=== PATIENT | female | born 1955 | race Caucasian/White ===

== ENCOUNTER 2018-09-19 12:33 | Emergency (ER) | payer SELFPAY ==
[2018-09-19 13:42] LABS: Absolute Lymphocytes (CBC) 1.8 K/uL (0.7-4.9); Absolute Monocytes 0.7 K/uL (0.1-1.3); Absolute Neutrophil 4.6 K/uL (1.8-8.0); Basophils % 0.9 % (0-1.3); Eosinophils % 0.4 % (0-4.4); Hematocrit 15.8 % (36.0-45.0); MPV 8.6 fL (7.6-11.3); Monocytes % 10.1 % (3.3-12.3); RBC Red Blood Cell Count 2.19 M/uL (3.86-4.86)
[2018-09-19 14:27] LABS: Albumin 3.6 g/dL (3.4-5.0); Bilirubin Direct 0.1 mg/dL (0-0.2); Bilirubin Total 0.4 mg/dL (0.2-1.0); Ferritin 1.6 ng/mL (8-388); Folic Acid, (Folate) 16.5 ng/mL (3.1-17.5); Potassium 3.4 mmol/L (3.5-5.1); Protein, Total 7.3 g/dL (6.4-8.2)
--- NOTE | 2018-09-19 14:45 | EKG ---
Test Date: 2018-09-19 Test Time: 13:13:14 Clerk: JAGDISH MEASUREMENT RESULTS: Intervals: Rate: 69 [place]: 150 QRSD: 84 QT: 378 QTc: 405 [place]: P: 35 [place]: 150 QRS: 15 T: 26 INTERPRETIVE STATEMENTS: Normal sinus rhythm Normal ECG Compared to ECG 05/17/2007 05:51:30 Sinus bradycardia no longer present Electronically Signed On 09-19-18 14:44:11 OBSTETRICS NURSE PRACTITIONER by Josue Sampson
--- NOTE | 2018-09-19 14:52 | ER ---
Nurse's Notes [facility] Name: Daxa Perea Age: 63 yrs Sex: Female : 1955 Arrival Date: 09/19/2018 Time: 12:36 Bed 6 Private MD: Jose F Yoder Diagnosis: Iron deficiency anemia Presentation: 09/19 12:55 Presenting complaint: Patient states: Had blood work done and Dr's office called and ph told her to come to ED for Hgb 5.6, pt reports recent GI illness w/ N/V/D x approx 1 week, denies bloody stool or emesis, reports dizziness, fatigue, SOB. Transition of care: patient was not received from another setting of care. Onset of symptoms was September 19, 2018. Risk Assessment: Do you want to hurt yourself or someone else? Patient reports no desire to harm self or others. Initial Sepsis Screen: Does the patient meet any 2 criteria? No. Patient's initial sepsis screen is negative. Does the patient have a suspected source of infection? No. Patient's initial sepsis screen is negative. Care prior to arrival: None. 12:55 Method Of Arrival: Ambulatory ph 12:55 Acuity: STEPHEN 3 ph Historical: - Allergies: 12:57 No Known Allergies; ph - Home Meds: 13:05 metoprolol succinate 25 mg oral Tb24 1 tab once daily [Active]; sv losartan-hydrochlorothiazide 50-12.5 mg oral tab 1 tab once daily [Active]; omeprazole 40 mg Oral cpDR 1 cap once daily [Active]; citalopram 20 mg tab 1 tab once daily [Active]; isosorbide mononitrate 30 mg Oral Tb24 1 tab once daily [Active]; atorvastatin 40 mg oral tab 1 tab once daily [Active]; clopidogrel 75 mg oral tab 1 tab once daily [Active]; bupropion HCl 150 mg Oral TbER 1 tab once daily [Active]; aspirin 81 mg Oral TbEC 1 tab once daily [Active]; Hemocyte-Plus 106 mg iron- 1 mg oral cap 1 cap once daily [Active]; Centrum Silver oral oral daily [Active]; - PMHx: 12:57 Hypertension; ph - Immunization history:: Adult Immunizations unknown. - Social history:: Smoking status: Patient/guardian denies using tobacco, Patient uses alcohol, on a daily basis. " 1 glass of wine". - Ebola Screening: : No symptoms or risks identified at this time. - Family history:: not pertinent. - Hospitalizations: : No recent hospitalization is reported. Screenin:20 Abuse screen: Denies threats or abuse. Denies injuries from another. Nutritional sv screening: No deficits noted. Tuberculosis screening: No symptoms or risk factors identified. 13:34 Fall Risk None identified. sv Assessment: 13:20 General: Appears in no apparent distress. comfortable, well groomed, well developed, sv Behavior is calm, cooperative, appropriate for age. Pain: Denies pain. Neuro: Level of Consciousness is awake, alert, obeys commands, Oriented to person, place, time, situation, Moves all extremities. Full function Gait is steady, Speech is normal, Reports weakness. Respiratory: Reports shortness of breath on exertion Airway is patent Respiratory effort is even, unlabored, Respiratory pattern is regular, symmetrical. GI: Reports diarrhea, nausea, vomiting. Derm: Skin is pale. 14:15 Reassessment: Patient appears in no apparent distress at this time. No changes from sv previously documented assessment. Patient and/or family updated on plan of care and expected duration. Pain level reassessed. Patient is alert, oriented x 3, equal unlabored respirations, skin warm/dry/pink. 15:07 Reassessment: Patient appears in no apparent distress at this time. No changes from sv previously documented assessment. Patient and/or family updated on plan of care and expected duration. Pain level reassessed. Patient is alert, oriented x 3, equal unlabored respirations, skin warm/dry/pink. Vital Signs: 12:57 BP 120 / 71; Pulse 75; Resp 18; Temp 97.8; Pulse Ox 100% on R/A; Weight 72.57 kg; ph Height 5 ft. 3 in. (160.02 cm); 13:45 BP 107 / 63; Pulse 85; Resp 18; Pulse Ox 99% ; sv 14:34 BP 105 / 58; Pulse 71; Resp 18; Pulse Ox 100% ; sv 12:57 Body Mass Index 28.34 (72.57 kg, 160.02 cm) ph ED Course: 12:36 Patient arrived in ED. rg4 12:36 Jose F Yoder MD is Private Physician. rg4 12:48 Adarsh Goodwin MD is Attending Physician. rn 12:57 Triage completed. ph 12:58 Arm band placed on Patient placed in an exam room, on a stretcher. ph 13:06 Marychuy Dos Santos, RN is Primary Nurse. sv 13:20 Patient has correct armband on for positive identification. Placed in gown. Bed in low sv position. Call light in reach. Door closed. Head of bed elevated. 13:25 Initial lab(s) drawn, by me, sent to lab. T\\T\\S collected, blood band applied to patient. sv Inserted saline lock: 20 gauge in right Blood collected. Flushed right forearm with 5 ml normal saline. 13:38 Awaiting lab results. sv 14:51 Jose F Yoder MD is Referral Physician. rn 15:07 No provider procedures requiring assistance completed. IV discontinued, intact, sv bleeding controlled, No redness/swelling at site. Pressure dressing applied. Administered Medications: No medications were administered Point of Care Testing: Guaiac: 14:15 Stool Guaiac: Negative; Stool Hemoccult Control: Pass; sv 14:36 Stool Guaiac: Negative; Stool Hemoccult Control: Pass; rn 14:[address] Goodwin Outcome: 15:07 AMA AMA form signed sv 15:07 Condition: stable 15:07 Instructed on follow up and referral plans. Demonstrated understanding of follow-up care. 15:09 Patient left the ED. sv Signatures: Marychuy Dos Santos, RN Adarsh Ferguson MD MD rn Hall, Patricia, RN RN ph Garcia, Rubi rg4
--- NOTE | 2018-09-19 14:52 | EDPHYS ---
Physician Documentation [facility] Name: Daxa Perea Age: 63 yrs Sex: Female : 1955 Arrival Date: 09/19/2018 Time: 12:36 Bed 6 Private MD: Jose F Yoder ED Physician Adarsh Goodwin HPI: 09/19 13:23 This 63 yrs old Female presents to ER via Ambulatory with complaints of rn Abnormal Lab Results. 13:23 Reports had outpt bloodwork and sent here for low hemoglobin, denies rn fever/vomiting/vomiting blood/blood in stool. Reports had recent "intestinal bug", denies abd pain. Reports feeling generalized weakness and fatigue for weeks now. No previous need for blood transfusion.. Onset: The symptoms/episode began/occurred at an unknown time. Severity of symptoms: At their worst the symptoms were moderate in the emergency department the symptoms are unchanged. The patient has not experienced similar symptoms in the past. The patient has been recently seen by a physician:. Historical: - Allergies: 12:57 No Known Allergies; ph - Home Meds: 13:05 metoprolol succinate 25 mg oral Tb24 1 tab once daily [Active]; sv losartan-hydrochlorothiazide 50-12.5 mg oral tab 1 tab once daily [Active]; omeprazole 40 mg Oral cpDR 1 cap once daily [Active]; citalopram 20 mg tab 1 tab once daily [Active]; isosorbide mononitrate 30 mg Oral Tb24 1 tab once daily [Active]; atorvastatin 40 mg oral tab 1 tab once daily [Active]; clopidogrel 75 mg oral tab 1 tab once daily [Active]; bupropion HCl 150 mg Oral TbER 1 tab once daily [Active]; aspirin 81 mg Oral TbEC 1 tab once daily [Active]; Hemocyte-Plus 106 mg iron- 1 mg oral cap 1 cap once daily [Active]; Centrum Silver oral oral daily [Active]; - PMHx: 12:57 Hypertension; ph - Immunization history:: Adult Immunizations unknown. - Social history:: Smoking status: Patient/guardian denies using tobacco, Patient uses alcohol, on a daily basis. " 1 glass of wine". - Ebola Screening: : No symptoms or risks identified at this time. - Family history:: not pertinent. - Hospitalizations: : No recent hospitalization is reported. ROS: 13:23 Constitutional: Negative for fever, chills, and weight loss, Eyes: Negative for injury, rn pain, redness, and discharge, Cardiovascular: Negative for chest pain, palpitations, and edema, Respiratory: Negative for shortness of breath, cough, wheezing, and pleuritic chest pain, Abdomen/GI: Negative for abdominal pain, nausea, vomiting, diarrhea, and constipation, MS/Extremity: Negative for injury and deformity, Skin: Negative for injury, rash, and discoloration, Neuro: Negative for headache, numbness, tingling, and seizure. Exam: 13:23 Constitutional: This is a well developed, well nourished patient who is awake, alert, rn and in no acute distress. Head/Face: Normocephalic, atraumatic. Eyes: Pale conjunctivae ENT: MMM Abdomen/GI: soft, non-tender Skin: Warm, dry MS/ Extremity: Pulses equal, no cyanosis. Neurovascular intact. Full, normal range of motion. Equal circumference. Neuro: Awake and alert, GCS 15, oriented to person, place, time, and situation. Cranial nerves II-XII grossly intact. Motor strength 5/5 in all extremities. Sensory grossly intact. Vital Signs: 12:57 BP 120 / 71; Pulse 75; Resp 18; Temp 97.8; Pulse Ox 100% on R/A; Weight 72.57 kg; ph Height 5 ft. 3 in. (160.02 cm); 13:45 BP 107 / 63; Pulse 85; Resp 18; Pulse Ox 99% ; sv 14:34 BP 105 / 58; Pulse 71; Resp 18; Pulse Ox 100% ; sv 12:57 Body Mass Index 28.34 (72.57 kg, 160.02 cm) ph MDM: 12:48 Patient medically screened. rn 14:44 Differential Diagnosis anemia, iron deficiency anemia. Data reviewed: vital signs, rn nurses notes, lab test result(s), EKG, and as a result, I will admit patient. Counseling: I had a detailed discussion with the patient and/or guardian regarding: the historical points, exam findings, and any diagnostic results supporting the discharge/admit diagnosis, lab results, radiology results, the need for further work-up and treatment in the hospital. Refusal of service: The patient/guardian displays adequate decision making capability and despite a detailed discussion of alternatives, benefits, risks, and consequences refuses: Admission to the hospital for further work-up and treatment. ED course: Pt with anemia, negative hemoccult, appears iron deficiency with low iron, low transferrin, low saturation. Recommended admission for iron deficiency and further w/u given father had evgeny, patient states just finished paying off 4 year bill for her heart attack and an admission would put her back a lot again and can't handle that. Risks understood. This has likely been ongoing for months or longer, states has chronic anemia but has never gotten this bad. Plans to make outpt appt with Dr. Yoder and hematology for further w/u and take iron supplements until then. Return precautions given and understood. . 09/19 12:59 Order name: TRANSFERRIN SAT/IRON BINDING; Complete Time: 14:36 rn 09/19 12:59 Order name: Folic Acid,Serum (folate); Complete Time: 14:36 rn 09/19 12:59 Order name: Ferritin; Complete Time: 14:36 rn 09/19 12:59 Order name: B12; Complete Time: 14:36 rn 09/19 12:59 Order name: Retic Count; Complete Time: 14:17 rn 09/19 12:59 Order name: Type And Screen rn 09/19 12:59 Order name: CBC with Diff; Complete Time: 14:17 rn 09/19 12:59 Order name: Basic Metabolic Panel; Complete Time: 14:36 rn 09/19 12:59 Order name: LFT's; Complete Time: 14:36 rn 09/19 12:59 Order name: Lipase; Complete Time: 14:36 rn 09/19 14:47 Order name: Occult Blood--Ancillary EDCA 09/19 12:59 Order name: EKG; Complete Time: 12:59 rn 09/19 12:59 Order name: EKG - Nurse/Tech; Complete Time: 13:34 rn Administered Medications: No medications were administered Point of Care Testing: Guaiac: 14:15 Stool Guaiac: Negative; Stool Hemoccult Control: Pass; mauro 14:36 Stool Guaiac: Negative; Stool Hemoccult Control: Pass; rn 14:[address] Christa wade Disposition: 09/19/18 14:52 Patient has left against medical advice. Impression: Iron deficiency anemia. - Patients states they are going to Home. - Condition is Stable. - Discharge Instructions: Iron Deficiency Anemia, Adult. - Prescriptions for Ferrous Sulfate 325 mg (65 mg Iron) Oral Tablet - take 1 tablet by ORAL route every 8 hours; 90 tablet. Follow up: Jose F Yoder MD; When: Upon discharge from the Emergency Department; Reason: Recheck today's complaints, Re-evaluation by your physician. - Problem is an ongoing problem. - Symptoms are unchanged. Signatures: Dispatcher [employer] EDCA Marychuy Dos Santos RN RN sv Nieto, Roman, MD MD rn Hall, Patricia, RN RN ph Corrections: (The following items were deleted from the chart) 13:00 12:59 FERRITIN+C.LAB.BRZ ordered. EDMS EDMS 13:24 13:23 Occult Blood+PA.LAB.BRZ ordered. EDCA EDMS 15:09 14:52 09/19/2018 14:52 Patients has left against medical advice. Impression: Iron sv deficiency anemia. Patient states they are going to Home. Condition is Stable. Follow up: Jose F Yoder; When: Upon discharge from the Emergency Department; Reason: Recheck today's complaints, Re-evaluation by your physician. Problem is an ongoing problem. Symptoms are unchanged. rn
== END 2018-09-19 15:09 | disposition left against medical advice (07) ==
LOC: ER 12:33
DX: D50.9 Iron deficiency anemia, unspecified (principal); I10 Essential (primary) hypertension; Z79.82 Long term (current) use of aspirin
CPT/HCPCS: 36415; 80048; 80076; 82272; 82607; 82728; 82746; 83540; 83690; 84466; 85025; 85044; 86850; 86870; 86900; 86901; 93005; 99283

== ENCOUNTER 2018-09-27 11:41 | Emergency (ER) | payer SELFPAY ==
[2018-09-27 13:06] LABS: Absolute Lymphocytes (CBC) 1.7 K/uL (0.7-4.9); Absolute Monocytes 0.7 K/uL (0.1-1.3); Basophils % 0.6 % (0-1.3); Hematocrit 25.9 % (36.0-45.0); Lymphocytes % 22.3 % (15.3-44.8); MPV 8.3 fL (7.6-11.3); Monocytes % 9.5 % (3.3-12.3); RBC Red Blood Cell Count 3.36 M/uL (3.86-4.86)
[2018-09-27 13:07] LABS: Protime INR 1.03
[2018-09-27 13:23] LABS: ALT/SGPT 16 U/L (12-78); AST/SGOT 13 U/L (15-37); Albumin 3.9 g/dL (3.4-5.0); Alkaline Phosphatase 103 U/L (45-117); BUN Blood Urea Nitrogen 15 mg/dL (7-18); Bicarbonate 28 mmol/L (21-32); Bilirubin Direct 0.1 mg/dL (0-0.2); Bilirubin Total 0.4 mg/dL (0.2-1.0); Glucose Level 104 mg/dL (74-106); Magnesium 2.4 mg/dL (1.8-2.4); NT PRO-BNP 81 pg/mL (<125); Potassium 3.7 mmol/L (3.5-5.1); Protein, Total 7.6 g/dL (6.4-8.2); Sodium Level 140 mmol/L (136-145); Troponin (Emerg Dept Use Only) < 0.02 ng/mL (0.0-0.045)
--- NOTE | 2018-09-27 13:27 | RAD REPORT ---
EXAM DESCRIPTION: RAD - Chest Single View - 09/27/2018 12:11 pm CLINICAL HISTORY: Anemia Chest pain. COMPARISON: CHEST SINGLE VIEW dated 05/16/2007 FINDINGS: Portable technique limits examination quality. The lungs are grossly clear. The heart is normal in size. No displaced fractures. IMPRESSION: No acute intrathoracic process suspected.
[2018-09-27 14:24] LABS: Hematocrit 25.6 % (36.0-45.0)
[2018-09-27 14:41] LABS: Anisocytosis 3+; Blood Morphology Comment NOTED (NOT SEEN); Hypochromasia 2+; Platelet Estimate INCR; Polychromasia 1+; Urine White Blood Cell Casts OK
--- NOTE | 2018-09-27 14:52 | EDPHYS ---
Physician Documentation [facility] Name: Daxa Perea Age: 63 yrs Sex: Female : 1955 Arrival Date: 09/27/2018 Time: 11:42 Bed 16 Private MD: Jose F Yoder ED Physician Alberto Asher HPI: 09/27 16:49 This 63 yrs old Female presents to ER via Ambulatory with complaints of kdr Abnormal Lab Results. 16:49 The patient was sent to the ED to address anemia found several days ago. The patient kdr has since had some SOB episodes and was seen by PCP today and referred to ED for possible transfusion. The patient had refused admission and transfusion on her last ED visit. Onset: The symptoms/episode began/occurred at an unknown time. Severity of symptoms: At their worst the symptoms were mild in the emergency department the symptoms are unchanged. The patient has not experienced similar symptoms in the past. The patient has been recently seen at the [facility] Emergency Department, last week. Historical: - Allergies: 11:55 No Known Allergies; tw2 - Home Meds: 11:55 aspirin 81 mg Oral TbEC 1 tab once daily [Active]; atorvastatin 40 mg Oral tab 1 tab tw2 once daily [Active]; bupropion HCl 150 mg Oral TbER 1 tab once daily [Active]; Centrum Silver Oral daily [Active]; citalopram 20 mg tab 1 tab once daily [Active]; clopidogrel 75 mg Oral tab 1 tab once daily [Active]; losartan-hydrochlorothiazide 50-12.5 mg Oral tab 1 tab once daily [Active]; isosorbide mononitrate 30 mg Oral Tb24 1 tab once daily [Active]; metoprolol succinate 25 mg Oral Tb24 1 tab once daily [Active]; omeprazole 40 mg Oral cpDR 1 cap once daily [Active]; ferrous sulfate 325 mg (65 mg iron) Oral tab [Active]; - PMHx: 11:55 Hypertension; tw2 - Immunization history:: Adult Immunizations. - Social history:: Smoking status: . - Ebola Screening: : Patient denies travel to an Ebola-affected area in the 21 days before illness onset. ROS: 16:49 Constitutional: Negative for fever, chills, and weight loss, Eyes: Negative for injury, kdr pain, redness, and discharge, ENT: Negative for injury, pain, and discharge, Neck: Negative for injury, pain, and swelling, Cardiovascular: Negative for chest pain, palpitations, and edema, Abdomen/GI: Negative for abdominal pain, nausea, vomiting, diarrhea, and constipation, Back: Negative for injury and pain, : Negative for injury, bleeding, discharge, and swelling, MS/Extremity: Negative for injury and deformity, Skin: Negative for injury, rash, and discoloration, Neuro: Negative for headache, weakness, numbness, tingling, and seizure activity. Psych: Negative for depression, anxiety, suicide ideation, homicidal ideation, and hallucinations, Allergy/Immunology: Negative for hives, rash, and allergies, Endocrine: Negative for neck swelling, polydipsia, polyuria, polyphagia, and marked weight changes, Hematologic/Lymphatic: Negative for swollen nodes, abnormal bleeding, and unusual bruising. 16:49 Respiratory: Positive for dyspnea on exertion, shortness of breath, on exertion. Exam: 16:49 Constitutional: This is a well developed, well nourished patient who is awake, alert, kdr and in no acute distress. Head/Face: Normocephalic, atraumatic. Eyes: Pupils equal round and reactive to light, extra-ocular motions intact. Lids and lashes normal. Conjunctiva and sclera are non-icteric and not injected. Cornea within normal limits. Periorbital areas with no swelling, redness, or edema. Neck: Trachea midline, no thyromegaly or masses palpated, and no cervical lymphadenopathy. Supple, full range of motion without nuchal rigidity, or vertebral point tenderness. No Meningismus. Chest/axilla: Normal chest wall appearance and motion. Nontender with no deformity. No lesions are appreciated. Cardiovascular: Regular rate and rhythm with a normal S1 and S2. No gallops, murmurs, or rubs. Normal PMI, no JVD. No pulse deficits. Respiratory: Lungs have equal breath sounds bilaterally, clear to auscultation and percussion. No rales, rhonchi or wheezes noted. No increased work of breathing, no retractions or nasal flaring. Abdomen/GI: Soft, non-tender, with normal bowel sounds. No distension or tympany. No guarding or rebound. No evidence of tenderness throughout. Back: No spinal tenderness. No costovertebral tenderness. Full range of motion. Skin: Warm, dry with normal turgor. Normal color with no rashes, no lesions, and no evidence of cellulitis. MS/ Extremity: Pulses equal, no cyanosis. Neurovascular intact. Full, normal range of motion. Neuro: Awake and alert, GCS 15, oriented to person, place, time, and situation. Cranial nerves II-XII grossly intact. Motor strength 5/5 in all extremities. Sensory grossly intact. Cerebellar exam normal. Normal gait. Psych: Awake, alert, with orientation to person, place and time. Behavior, mood, and affect are within normal limits. Vital Signs: 11:53 BP 120 / 86; Pulse 75; Resp 17; Temp 97.3(TE); Pulse Ox 100% on R/A; Weight 73.48 kg tw2 (R); Height 5 ft. 3 in. (160.02 cm); Pain 0/10; 13:01 BP 129 / 86; Pulse 68; Resp 18; Pulse Ox 99% on R/A; hj 14:32 BP 110 / 82; Pulse 70; Resp 18; Pulse Ox 98% on R/A; hj 15:16 BP 120 / 80; Pulse 74; Resp 18; Pulse Ox 100% on R/A; hj 11:53 Body Mass Index 28.70 (73.48 kg, 160.02 cm) tw2 MDM: 14:51 Patient medically screened. kdr 16:49 Data reviewed: vital signs, nurses notes, lab test result(s). [facility] 09/27 11:56 Order name: CBC with Diff; Complete Time: 14:46 [facility] 09/27 11:56 Order name: Chem 7; Complete Time: 14:46 [facility] 09/27 11:56 Order name: PT-INR; Complete Time: 13:20 [facility] 09/27 11:56 Order name: Type And Screen [facility] 03 11:56 Order name: LFT's; Complete Time: 14:46 [facility] 09/27 11:56 Order name: Magnesium; Complete Time: 14:46 [facility] 09/27 11:56 Order name: NT PRO-BNP; Complete Time: 14:46 [facility] 09/27 11:56 Order name: Troponin (emerg Dept Use Only); Complete Time: 14:46 [facility] 09/27 11:56 Order name: XRAY Chest (1 view); Complete Time: 14:46 [facility] 09/27 11:56 Order name: EKG; Complete Time: 11:57 [facility] 09/27 11:56 Order name: Cardiac monitoring; Complete Time: 12:45 [facility] 09/27 13:09 Order name: CBC Smear Scan; Complete Time: 14:46 [facility] 09/27 13:26 Order name: Hemoglobin; Complete Time: 14:46 [facility] 09/27 13:26 Order name: Hematocrit; Complete Time: 14:46 [facility] 09/27 11:56 Order name: EKG - Nurse/Tech; Complete Time: 13:40 [facility] 09/27 11:56 Order name: IV Saline Lock; Complete Time: 13:00 [facility] 09/27 11:56 Order name: Labs collected and sent; Complete Time: 13:00 [facility] 09/27 11:56 Order name: O2 Per Protocol; Complete Time: 12:46 [facility] 09/27 11:56 Order name: O2 Sat Monitoring; Complete Time: 12:46 [facility] Administered Medications: No medications were administered Disposition: 09/27/18 14:51 Discharged to Home. Impression: Anemia, unspecified - Iron def.. - Condition is Stable. - Discharge Instructions: Anemia, Nonspecific, Iron-Rich Diet, Iron Deficiency Anemia, Adult, [id number]. - Medication Reconciliation Form, Thank You Letter form. - Work release form (09/27/18 15:20). em1 - Follow up: Jose F Yoder MD; When: 2 - 3 days; Reason: If symptoms return, Further diagnostic work-up, Recheck today's complaints, Continuance of care, Re-evaluation by your physician. - Problem is an ongoing problem. - Symptoms have improved. Signatures: Dispatcher [employer] [facility] Alberto Asher MD MD [facility] Nestor Puente RN RN Carmen Palomares RN RN tw2 Corwin Benítez em1 Corrections: (The following items were deleted from the chart) 15:17 14:51 09/27/2018 14:51 Discharged to Home. Impression: Anemia, unspecified - Iron def.. hj Condition is Stable. Forms are Medication Reconciliation Form, Thank You Letter, Antibiotic Education, Prescription Opioid Use. Follow up: Jose F Yoder; When: 2 - 3 days; Reason: If symptoms return, Further diagnostic work-up, Recheck today's complaints, Continuance of care, Re-evaluation by your physician. Problem is an ongoing problem. Symptoms have improved. kdr
--- NOTE | 2018-09-27 14:52 | ER ---
Nurse's Notes [facility] Name: Daxa Perea Age: 63 yrs Sex: Female : 1955 Arrival Date: 09/27/2018 Time: 11:42 Bed 16 Private MD: Jose F Yoder Diagnosis: Anemia, unspecified-Iron def. Presentation: 09/27 11:52 Presenting complaint: Patient states: my Hemoglobin was 5. something and Dr. Singh tw2 wants blood work stat and probably a transfusion and he was supposed to call. Transition of care: patient was not received from another setting of care. Onset of symptoms was September 27, 2018. Risk Assessment: Do you want to hurt yourself or someone else? Patient reports no desire to harm self or others. Initial Sepsis Screen: Does the patient meet any 2 criteria? No. Patient's initial sepsis screen is negative. Does the patient have a suspected source of infection? No. Patient's initial sepsis screen is negative. Care prior to arrival: None. 11:52 Method Of Arrival: Ambulatory tw2 11:52 Acuity: STEPHEN 3 tw2 Triage Assessment: 11:53 General: Appears in no apparent distress. well groomed, Behavior is calm, cooperative, tw2 appropriate for age. Pain: Denies pain. Historical: - Allergies: 11:55 No Known Allergies; tw2 - Home Meds: 11:55 aspirin 81 mg Oral TbEC 1 tab once daily [Active]; atorvastatin 40 mg Oral tab 1 tab tw2 once daily [Active]; bupropion HCl 150 mg Oral TbER 1 tab once daily [Active]; Centrum Silver Oral daily [Active]; citalopram 20 mg tab 1 tab once daily [Active]; clopidogrel 75 mg Oral tab 1 tab once daily [Active]; losartan-hydrochlorothiazide 50-12.5 mg Oral tab 1 tab once daily [Active]; isosorbide mononitrate 30 mg Oral Tb24 1 tab once daily [Active]; metoprolol succinate 25 mg Oral Tb24 1 tab once daily [Active]; omeprazole 40 mg Oral cpDR 1 cap once daily [Active]; ferrous sulfate 325 mg (65 mg iron) Oral tab [Active]; - PMHx: 11:55 Hypertension; tw2 - Immunization history:: Adult Immunizations. - Social history:: Smoking status: . - Ebola Screening: : Patient denies travel to an Ebola-affected area in the 21 days before illness onset. Screenin:59 Abuse screen: Denies threats or abuse. Denies injuries from another. Nutritional hj screening: No deficits noted. Tuberculosis screening: No symptoms or risk factors identified. Fall Risk None identified. Assessment: 11:53 General: Appears in no apparent distress. uncomfortable, Behavior is calm, cooperative, hj appropriate for age. Pain: Denies pain. Neuro: Level of Consciousness is awake, alert, obeys commands, Oriented to person, place, time, situation, Appropriate for age. Cardiovascular: Capillary refill < 3 seconds Patient's skin is warm and dry. Respiratory: Reports shortness of breath Airway is patent Respiratory effort is even, unlabored, Respiratory pattern is regular, symmetrical. GI: No signs and/or symptoms were reported involving the gastrointestinal system. : No signs and/or symptoms were reported regarding the genitourinary system. EENT: No signs and/or symptoms were reported regarding the EENT system. Derm: No signs and/or symptoms reported regarding the dermatologic system. Musculoskeletal: No signs and/or symptoms reported regarding the musculoskeletal system. 12:30 Reassessment: Patient and/or family updated on plan of care and expected duration. Pain hj level reassessed. Patient is alert, oriented x 3, equal unlabored respirations, skin warm/dry/pink. awaiting for results and POC;. 13:47 Reassessment: Patient and/or family updated on plan of care and expected duration. Pain hj level reassessed. Patient is alert, oriented x 3, equal unlabored respirations, skin warm/dry/pink. awaiting POC;. 14:31 Reassessment: Patient and/or family updated on plan of care and expected duration. Pain hj level reassessed. Patient is alert, oriented x 3, equal unlabored respirations, skin warm/dry/pink. awaiting repeat H/H;. 14:36 Reassessment: critical lab- Hgb- 7.9; notified;. hj Vital Signs: 11:53 BP 120 / 86; Pulse 75; Resp 17; Temp 97.3(TE); Pulse Ox 100% on R/A; Weight 73.48 kg tw2 (R); Height 5 ft. 3 in. (160.02 cm); Pain 0/10; 13:01 BP 129 / 86; Pulse 68; Resp 18; Pulse Ox 99% on R/A; hj 14:32 BP 110 / 82; Pulse 70; Resp 18; Pulse Ox 98% on R/A; hj 15:16 BP 120 / 80; Pulse 74; Resp 18; Pulse Ox 100% on R/A; hj 11:53 Body Mass Index 28.70 (73.48 kg, 160.02 cm) tw2 ED Course: 11:42 Patient arrived in ED. dl4 11:42 Jose F Yoder MD is Private Physician. dl4 11:52 Triage completed. tw2 11:52 Arm band placed on. tw2 11:55 Alberto Asher MD is Attending Physician. kdr 12:13 XRAY Chest (1 view) In Process Unspecified. EDMS 12:44 Nestor Puente, RN is Primary Nurse. hj 12:47 EKG done, by diagnostic technician. reviewed by Leopoldo DALEY. at1 12:59 Inserted saline lock: 20 gauge in left antecubital area, using aseptic technique. pc1 13:00 Patient has correct armband on for positive identification. Placed in gown. Bed in low hj position. Call light in reach. Side rails up X 1. 13:00 LFT's Sent. hj 13:00 Magnesium Sent. hj 13:00 NT PRO-BNP Sent. hj 13:00 Troponin (emerg Dept Use Only) Sent. hj 13:00 Type And Screen Sent. hj 13:01 PT-INR Sent. hj 13:01 Chem 7 Sent. hj 13:01 CBC with Diff Sent. hj 13:01 Initial lab(s) drawn, by me, sent to lab. X-ray(s) taken. hj 13:13 X-ray completed. Portable x-ray completed in exam room. Patient tolerated procedure sw well. 14:08 Hemoglobin Sent. hj 14:08 Hematocrit Sent. hj 14:51 Jose F Yoder MD is Referral Physician. kdr 15:15 No provider procedures requiring assistance completed. IV discontinued, intact, hj bleeding controlled, No redness/swelling at site. Pressure dressing applied. Administered Medications: No medications were administered Outcome: 14:51 Discharge ordered by . kdr 15:16 Discharged to home ambulatory. hj 15:16 Condition: stable 15:16 Discharge instructions given to patient, Instructed on discharge instructions, follow up and referral plans. Demonstrated understanding of instructions, follow-up care. 15:17 Patient left the ED. kunal Signatures: Dispatcher [employer] EDMS Alberto Asher MD MD [facility] Sarai Rader, wrap knitting machine operator EKG Tat1 Tosin Johnson Henry RN RN Carmen Palomares RN RN tw2 Jeffery Alejandre dl4 Prashanth Buchanan pc1 Corrections: (The following items were deleted from the chart) 14:35 14:32 BP 110 / 82; Pulse 105bpm; Resp 18bpm; Pulse Ox 98% RA; kunal syed
== END 2018-09-27 15:17 | disposition home or self-care (01) ==
LOC: ER 11:41
DX: D50.9 Iron deficiency anemia, unspecified (principal); I10 Essential (primary) hypertension; Z79.82 Long term (current) use of aspirin
CPT/HCPCS: 36415; 71045; 80048; 80076; 83735; 83880; 84484; 85014; 85018; 85025; 85610; 86850; 86900; 86901; 93005; 99284